=== PATIENT | male | born 1980 | race Caucasian/White ===

== ENCOUNTER 2020-03-08 02:44 | Emergency (ER) | payer OTHER ==
[~2020-03-08] VITALS: Ht 180.3 cm; Wt 68.2 kg
[2020-03-08 02:48] VITALS: Ht 180.3 cm; Wt 68.2 kg
[2020-03-08] MEDS ORDERED: ZOFRAN ODT4 MG/UDTAB PO (03:43)
[2020-03-08] MEDS ORDERED: AUGMENTIN 875-11 TAB PO (03:43)
[2020-03-08] MEDS ORDERED: HYDROCODON-ACE1 EA10 PO (03:43)
[2020-03-08 04:31] VITALS: BP 126/87
== END 2020-03-08 04:31 | disposition home or self-care (01) ==
LOC: D.ER 02:44
DX: S81.852A Open bite, left lower leg, initial encounter (principal); W54.0XXA Bitten by dog, initial encounter; Y93.9 Activity, unspecified; Y92.9 Unspecified place or not applicable; S80.12XA Contusion of left lower leg, initial encounter; S81.812A Laceration without foreign body, left lower leg, initial encounter; M79.18 Myalgia, other site; T14.8XXA Other injury of unspecified body region, initial encounter